=== PATIENT | female | born 1970 | race Asian ===

== ENCOUNTER → 2025-04-24 06:48 | Outpatient (REF) | payer OTHER, SELFPAY | LOC: RAD 06:48 | PROVIDERS: ATTENDING PHYSICIAN Nurse Practitioner Family | DX: R74.01 Elevation of levels of liver transaminase levels (principal) | CPT/HCPCS: 76700 ==

== ENCOUNTER 2025-08-16 04:40 | Emergency (ER) | payer OTHER, SELFPAY ==
[2025-08-16 04:41] VITALS: BP 128/81
[2025-08-16 05:31] LABS: Hematocrit 39.2 % (37.0-47.0); Hemoglobin 13.2 g/dL (12.0-16.0); Mean Corp Hgb Conc. 33.7 g/dL (33.0-37.0); Mean Corpuscular Volume 89.7 fL (81.0-99.0); Nucleated Red Blood Cells % 0 %; Platelet Count 292 10^3/uL (130-400); Red Cell Dist. Width 12.3 % (11.5-14.5)
[2025-08-16 05:40] LABS: Urine Character Bloody (Clear)
[2025-08-16 05:53] LABS: Blood Urea Nitrogen 23 mg/dl (7-17); Calcium 10.1 mg/dl (8.4-10.2); Carbon Dioxide 26 mmol/L (22-30); Chloride 102 mmol/L (98-107); Glucose 92 mg/dl (70-99); Potassium 4.3 mmol/L (3.5-5.1); Sodium 134 mmol/L (135-145); eGFR > 60.00
[2025-08-16 05:55] LABS: Urine Red Blood Cell >100 /HPF (0-2)
--- NOTE | 2025-08-16 06:12 | ED.GENMED ---
History of Present Illness
General
Chief Complaint: Urinary Symptoms
Source: patient
Exam Limitations: none
Time Seen by Provider: 08/16/25 06:05
History of Present Illness
History of Present Illness:
54-year-old female sudden onset of urinary symptoms with gross hematuria at about 2:00 AM. Some urgency and frequency. No flank or back pain. No fever or chills. No history of same. At times feels like she cannot empty her bladder. Patient is
postmenopausal.
Past History
Past History
ED Past Medical History: None
ED Past Surgical History: Gynecological
Social History
Tobacco: Former smoker
Review of Systems
Review of Systems
All Other Systems: Not applicable
Constitutional: Denies fever or chills
Phy Exam
Physical Exam
Physical Exam:
GENERAL: Alert and oriented in no apparent distress
EYE: Orbits normal.
NECK: Supple
CARDIAC: Regular rate and rhythm without any obvious murmurs.
LUNGS: Clear breath sounds,normal
ABDOMEN: Soft, without focal tenderness or distention. No significant bladder distention. No tenderness
NEUROLOGICAL: Alert and oriented , grossly non-focal
SKIN: Warm and dry, no rash or lesion, no discoloration, skin intact.
MUSCULOSKELETAL: No edema,no deformity.Good color
PSYCH: Normal and appropriate interaction.
Course
Orders/Labs/Results
Orders:
Orders
08/16/25 04:56
BMP [Basic Metabolic Panel] Urgent
Complete Blood Count/With Diff Urgent
Urinalysis Reflex To Culture Urgent
Date Specimen was Collected: 08/16/25
Time Specimen was Collected: 04:52
Urine Microscopic Reflex Cult Urgent
Urine Culture Urgent
CHANDU Source: U
Specimen Description:
Date Specimen was Collected: 08/16/25
Time Specimen was Collected: 04:52
08/16/25 06:12
CT Abd/pel Without Iv Or Oral Urgent
Comment:
Reason For Exam: Gross hematuria/UTI symptoms
08/16/25 07:50
CefTRIAXone [Rocephin] 1,000 mg IV NOW STA
08/16/25 08:07
Sterile Water [Sterile Water For Injection] 10 ml .ROUTE .STK-MED ONE
Abnormal Lab Results
08/16/25
04:56
Absolute Neuts (auto) 7.0 H 10^3/uL
(1.4-6.5)
Absolute Lymphs (auto) 1.0 L 10^3/uL
(1.2-3.4)
Neutrophils % 82.6 H %
(42.2-75.2)
Lymphocytes % 11.5 L %
(20.5-51.1)
Sodium 134 L mmol/L
(135-145)
BUN 23 H mg/dl
(7-17)
Creatinine 0.5 L mg/dL
(0.6-1.0)
Ur Occult Blood Reflex 4+ A
(Negative)
Leukocyte Esterase Rfl 2+ A
(Negative)
Urine RBC >100 A /HPF
(0-2)
Urine Albumin (Reflex) 4+ A
(Neg - Trace)
08/16/25 04:56
08/16/25 04:56
Vital Signs
Initial and Last Documented VS:
Initial Vital Signs
Temp Pulse Resp BP Pulse Ox
98.3 F 99 16 128/81 96
08/16/25 04:41 08/16/25 04:41 08/16/25 04:41 08/16/25 04:41 08/16/25 04:41
Last Documented Vital Signs
Temp Pulse Resp BP Pulse Ox
98.3 F 74 18 110/79 98
08/16/25 04:41 08/16/25 07:19 08/16/25 07:19 08/16/25 07:19 08/16/25 07:19
MDM/Problems Addressed
Differential Diagnosis Includes:
Patient describing relatively sudden onset of gross hematuria/UTI symptoms. Labs are stable. Patient is stable clinically not describing systemic symptoms of infection. However urine is positive and she is partially describing kidney stone
symptoms. CT scan pending.
*Pulse Oximetry
SaO2: 96
Oxygen Mode of Delivery: Room air
Patient hypoxic: no
*Critical Care Note
Total Time (30-74mins, 75-104mins- exclusive of procedures): Not Applicable
Update Note
Update Note:
Hematuria UTI symptoms. No kidney stone. Clinically not septic at all. Nontoxic. Will treat for UTI and follow-up.
ED Attending Note
-
Portions of this chart may have been created with voice recognition software.� Occasional wrong word or��sound alike� substitutions may have occurred due to the inherent limitations of voice recognition software.
Discharge Plan
Departure
Patient Disposition: Home (Routine Discharge)
Date of Disposition: 08/16/25
Time of Disposition: 07:54
Patient with high blood pressure during this ER visit?: No
Discharge Problem:
Gross hematuria, Possible hemorrhagic cystitis
Instructions: Urinary Tract Infection, Adult (DC), Blood in the Urine (Hematuria), Adult (DC)
Prescriptions:
New
cefdinir 300 mg capsule
300 mg PO BID 7 Days Qty: 14 0RF
phenazopyridine [Pyridium] 200 mg tablet
200 mg PO Q8H PRN (Reason: bladder spasm) Qty: 6 0RF
Referrals:
Patrice Azar MD [Active, Urology] - Next open appointment
Delisa Calderon CRNP [Family Provider, Family Practice] - Follow up in 2-3 days
Activity Restrictions/Additional Instructions:
The prescription was sent to your pharmacy
Start the oral antibiotics tomorrow morning
Pyridium for bladder spasm
Return sooner with increased inability to urinate, fever chills flank pain.
I would recommend urologic follow-up
Interventions
Interventions:
*Risk Screen - Suicide Last Done: 08/16/25 04:41
*General Assessment Last Done: 08/16/25 04:41
*Neglect/Abuse Screening Last Done: 08/16/25 04:41
*ED- Fall Risk Assessment Last Done: 08/16/25 04:44
*ED COVID-19 Vaccine History Last Done: 08/16/25 04:44
*ED Influenza Vaccine History Last Done: 08/16/25 04:44
*Nursing Disposition Last Done: 08/16/25 08:19
ED-Female Genitourinary Assessment Last Done: 08/16/25 05:00
Discharge Date and Time
Discharge Date/Time: 08/16/25 08:24
Print Language: UPPER SORBIAN
[2025-08-16 07:19] VITALS: BP 110/79
[2025-08-16] MEDS: ROCEPHIN 1000 MG IV (08:11)
== END 2025-08-16 08:24 | disposition home or self-care (01) ==
LOC: EMR 04:40
PROVIDERS: Emergency Medicine; EMERGENCY PHYSICIAN Emergency Medicine; FAMILY PHYSICIAN Nurse Practitioner Family
DX: R31.0 Gross hematuria (principal); Z87.891 Personal history of nicotine dependence; Z78.0 Asymptomatic menopausal state
CPT/HCPCS: 99284; 96374; 74176; 80048; 81003; 81015; 85025; 87086; 87088